=== PATIENT | male | born 1990 | race Caucasian/White ===

== ENCOUNTER → 2019-03-13 17:31 | Outpatient (CLI) | payer OTHER, SELFPAY ==
--- NOTE | 2019-03-13 | DI.MRI.S_ITS ---
PROCEDURE: MR HEAD/BRAIN WO CON INDICATIONS: HEADACHE TECHNIQUE: Noncontrast axial T1 spin echo, axial T2 fast spin echo, sagittal and axial FLAIR, coronal T2 fast spin echo, axial gradient echo, axial diffusion and ADC through the brain. COMPARISON: None. FINDINGS: Image quality: Excellent. CSF Spaces: Basal cisterns are patent. No extra-axial fluid collections. Ventricles are normal in size and shape. Brain: No intracranial masses or hemorrhage. Hooker/white matter interface is normal. Brainstem appears normal. Diffusion-weighted images demonstrate no acute ischemic insult. No chronic ischemic insults. Normal intravascular flow voids are present. Skull and face: Calvarium has normal marrow signal. Orbits appear normal. Sinuses: Bilateral maxillary sinus retention cysts are present. Sinuses and mastoids are otherwise clear. IMPRESSION: 1. Negative evaluation of the brain. No recent infarct. 2. No explanation for headache. Dictated by: Dion Davis M.D. on 03/14/2019 at 8:32 Approved by: Dion Davis M.D. on 03/14/2019 at 8:36
== END ==
PROVIDERS: Visit Provider Nurse Practitioner Family
DX: R51 Headache (principal)
CPT/HCPCS: 70551